=== PATIENT | female | born 1950 | race Caucasian/White ===

== ENCOUNTER 2022-03-23 09:01 | Emergency (ER) | payer MEDICARE, BC ==
[2022-03-23] MEDS ORDERED: Sodium Chloride 0.9% 10 ML Syringe FLUSH PRN (09:22)
[2022-03-23 10:40] LABS: CHLORIDE,CL 105 mmol/L (98-107); SODIUM,NA 140 mmol/L (136-145)
[2022-03-23] MEDS ORDERED: Iopamidol 755 Mg/ML 100 ML Bottle IVPUSH STA (10:59)
[2022-03-23 11:01] LABS: ANION GAP 14.6 meq/L (7-15)
[2022-03-23] MEDS ORDERED: Pantoprazole 80 MG in Sodium Chloride 0.9% 100 ML IV SCH (11:45)
[2022-03-23] MEDS: Pantoprazole 80 MG in Sodium Chloride 0.9% 100 ML IV ONE (12:29)
== END 2022-03-23 13:05 ==
LOC: LL.ED 09:01
DX: K92.2 Gastrointestinal hemorrhage, unspecified (principal)
CPT/HCPCS: 36415; 80053; 82272; 82947; 83605; 83735; 83880; 84100; 84484; 85014; 85018; 85025; 85610; 85730; 86140; 86850; 86900; 86901; 87040; 93005; 96365; 99284; 99285; C9113; J3490

== ENCOUNTER 2023-08-01 13:28 | Emergency (ER) | payer MEDICARE, BC ==
[2023-08-01] MEDS ORDERED: Bacitracin Oint 1 GM U/D Packet TOP ONE (13:59)
== END 2023-08-01 15:00 | disposition home or self-care (01) ==
LOC: LL.ED 13:28
DX: S61.002A Unspecified open wound of left thumb without damage to nail, initial encounter (principal); E78.00 Pure hypercholesterolemia, unspecified; Z79.01 Long term (current) use of anticoagulants; Z79.899 Other long term (current) drug therapy; W26.8XXA Contact with other sharp object(s), not elsewhere classified, initial encounter
CPT/HCPCS: 99283